=== PATIENT | male | born 1990 | race Two or more races ===

== ENCOUNTER 2019-10-16 13:04 | Emergency (ER) | payer MEDICAID ==
[~2019-10-16] VITALS: Ht 170.2 cm; Wt 65.0 kg
[2019-10-16] MEDS ORDERED: SODIUM CHLORIDE 0.9% 1,000 ML IV ONE ×2 (15:26→18:15)
[2019-10-16] MEDS ORDERED: ACETAMINOPHEN 500MG TABLET PO ONE (15:30)
[2019-10-16 15:52] LABS: BASOPHILS % 0.3 % (0.0-2.0); EOSINOPHILS % 0.2 % (0.0-5.0); HEMATOCRIT. 40.2 % (42.0-52.0); HEMOGLOBIN. 13.6 g/dL (14.0-18.0); LYMPHOCYTES % 7.2 % (20.0-50.0); MEAN CORPUSCULAR HEMOGLOBIN 31.3 pg (28.0-32.0); MEAN CORPUSCULAR VOLUME 92.3 fL (80.0-94.0); MEAN PLATELET VOLUME 7.9 fl (7.4-10.4); MONOCYTES % 4.4 % (2.0-8.0); NEUTROPHILS % 87.9 % (40.0-76.0); PLATELET 248 x1000/uL (130-400); RED BLOOD CELL COUNT 4.36 mill/uL (4.7-6.1)
[2019-10-16 15:55] LABS: CHLORIDE 107 mEq/L (98-107)
[2019-10-16 15:59] LABS: ETHANOL BLOOD < 10 mg/dL
[2019-10-16] MEDS ORDERED: KETOROLAC 15MG/ML VIAL IV ONE (18:15)
[2019-10-16] MEDS ORDERED: IOHEXOL-300 100 ML BOTTLE ONE (20:45)
[2019-10-16 21:03] VITALS: BP 115/69
== END 2019-10-16 21:06 | disposition home or self-care (01) ==
LOC: ER 13:08
DX: R55 Syncope and collapse (principal); R07.89 Other chest pain; Z90.49 Acquired absence of other specified parts of digestive tract; Z95.2 Presence of prosthetic heart valve; V49.88XA Car occupant (driver) (passenger) injured in other specified transport accidents, initial encounter; Y93.89 Activity, other specified; Y92.89 Other specified places as the place of occurrence of the external cause; Y99.8 Other external cause status
CPT/HCPCS: 36415; 70450; 71045; 71260; 74177; 80053; 80307; 80320; 80329; 83735; 84484; 85025; 93005; 96361; 96374; 99284; J1885; J7030; Q9967; G0480

== ENCOUNTER 2020-01-14 11:04 | Emergency (ER) | payer SELFPAY ==
[~2020-01-14] VITALS: Ht 177.8 cm; Wt 64.0 kg
[2020-01-14] MEDS ORDERED: SODIUM CHLORIDE 0.9% 1,000 ML IV ONE (12:36)
[2020-01-14 12:53] LABS: BASOPHILS % 0.5 % (0.0-2.0); EOSINOPHILS % 1.2 % (0.0-5.0); HEMATOCRIT. 41.7 % (42.0-52.0); HEMOGLOBIN. 14.1 g/dL (14.0-18.0); LYMPHOCYTES % 13.1 % (20.0-50.0); MEAN CORPUSCULAR HEMOGLOBIN 31.5 pg (28.0-32.0); MEAN PLATELET VOLUME 6.7 fl (7.4-10.4); NEUTROPHILS % 79.2 % (40.0-76.0); PLATELET 267 x1000/uL (130-400); RED BLOOD CELL COUNT 4.48 mill/uL (4.7-6.1); RED CELL DISTRIBUTION WIDTH 13.4 % (11.6-14.6)
[2020-01-14 12:59] LABS: CHLORIDE 102 mEq/L (98-107)
[2020-01-14 13:03] LABS: ETHANOL BLOOD < 10 mg/dL
[2020-01-14] MEDS ORDERED: KETOROLAC 30MG/ML VIAL IV ONE (14:00)
[2020-01-14 14:41] LABS: CLARITY URINE CLEAR (CLEAR); COLOR URINE YELLOW (YELLOW); KETONES URINE NEGATIVE (NEGATIVE); LEUKOCYTE ESTERASE URINE NEGATIVE (NEGATIVE); NITRITE URINE NEGATIVE (NEGATIVE); OCCULT BLOOD URINE NEGATIVE (NEGATIVE); PH URINE 6.5 (4.5-8.0); PROTEIN URINE NEGATIVE (NEGATIVE); SPECIFIC GRAVITY URINE 1.017 (1.005-1.030); UROBILINOGEN URINE 0.2 E.U./dL (0.2-1.0)
[2020-01-14 15:01] LABS: METHADONE URINE SCREEN NEGATIVE (NEGATIVE); OPIATES URINE SCREEN NEGATIVE (NEGATIVE)
[2020-01-14 15:02] LABS: *AMPHETAMINES SCREEN URINE PRESUMTIVE POSITIVE (NEGATIVE); *BARBITURATES SCREEN URINE NEGATIVE (NEGATIVE); *BENZODIAZEPINES SCREEN URINE NEGATIVE (NEGATIVE); *COCAINE SCREEN URINE NEGATIVE (NEGATIVE); CANNABINOID URINE SCREEN NEGATIVE (NEGATIVE); PHENCYCLIDINE URINE SCREEN NEGATIVE (NEGATIVE)
[2020-01-14] MEDS ORDERED: ACETAMINOPHEN 325MG TABLET PO ONE (15:15)
[2020-01-14 16:00] VITALS: BP 122/73
== END 2020-01-14 16:31 | disposition home or self-care (01) ==
LOC: ER 11:13
DX: R55 Syncope and collapse (principal); F14.10 Cocaine abuse, uncomplicated
CPT/HCPCS: 36415; 70450; 73030; 80053; 80305; 80320; 81003; 85025; 96360; 96361; 99285; J1885; J7030; G0480

== ENCOUNTER 2021-11-12 14:09 | Emergency (ER) | payer MEDICAID ==
[~2021-11-12] VITALS: Ht 165.1 cm; Wt 75.0 kg
[2021-11-12] MEDS ORDERED: ONDANSETRON HCL 4MG/2ML INJ IV STA (14:51)
[2021-11-12] MEDS ORDERED: SODIUM CHLORIDE 0.9% 1,000 ML IV ONE (15:00)
[2021-11-12] MEDS ORDERED: CLONIDINE 0.1MG TABLET PO ONE (15:00)
[2021-11-12] MEDS ORDERED: KETOROLAC 15MG/ML VIAL IV ONE (16:15)
[2021-11-12 16:33] VITALS: BP 126/80
[2021-11-12] MEDS ORDERED: NAPR-1176 MT (17:46)
== END 2021-11-12 18:40 | disposition home or self-care (01) ==
LOC: ER 14:09
DX: F11.23 Opioid dependence with withdrawal (principal); G89.29 Other chronic pain; R07.89 Other chest pain; F14.10 Cocaine abuse, uncomplicated; Z95.2 Presence of prosthetic heart valve
CPT/HCPCS: 96361; 96374; 96375; 99284; J1885; J2405